=== PATIENT | male | born 1955 | race Caucasian/White ===

== ENCOUNTER 2017-10-11 15:56 | Emergency (ER) | payer OTHER ==
[2017-10-11 16:11] VITALS: BP 185/85; PULSE 72; RESP 20; TEMP 98.3
[2017-10-11] MEDS ORDERED: DIPH,PERTUS(ACELL)TETVAC-LF 0.5 ML VIAL IM ONE (16:15)
[2017-10-11] MEDS ORDERED: HYDROcodone/APAP 5-325MG 1 EACH TAB PO STA (16:28)
--- NOTE | 2017-10-11 16:30 | ED ---
Wound/Laceration HPI - General Chief Complaint: Wound/Laceration Stated Complaint: Cut off tip of finger Time Seen by Provider: 10/11/17 16:12 Source: patient, RN notes reviewed Mode of arrival: ambulatory Limitations: no limitations - History of Present Illness Initial Comments: This a 62-year-old male presents emergency Department chief complaint of right hand fourth digit finger injury. Patient states he caught his finger on a field training agent. Patient states that the nail, portion of his finger is missing. Patient did present initially to PCPs office who referred him to emergency department. He is unsure when his last tetanus was. Patient does state that portion finger that is missing including nail. Patient denies any other injuries. He is [id number]. - Related Data Home Medications Medication Instructions Recorded Confirmed Aspirin [Adult Low Dose Aspirin EC] 81 mg PO DAILY 07/06/16 07/09/16 [place]-3 Fatty Acids/Fish Oil [Fish 1 each PO DAILY 07/06/16 07/09/16 Oil 1,000 mg Softgel] Previous Rx's Medication Instructions Recorded Cephalexin [Keflex] 500 mg PO Q6HR #40 cap 10/11/17 Hydrocodone/Acetaminophen [[place] 1 tab PO Q6HR PRN #20 tab 10/11/17 5-325] Allergies Allergy/AdvReac Type Severity Reaction Status Date / Time No Known Allergies Allergy Verified 10/11/17 16:10 Review of Systems ROS Statement: Those systems with pertinent positive or pertinent negative responses have been documented in the HPI. ROS Other: All systems not noted in ROS Statement are negative. Past Medical History Past Medical History: Prostate Disorder Additional Past Medical History / Comment(s): hemorrhoids, occasional ringing in ears History of Any Multi-Drug Resistant Organisms: None Reported Past Surgical History: Hernia Repair Past Anesthesia/Blood Transfusion Reactions: No Reported Reaction Past Psychological History: No Psychological Hx Reported Smoking Status: Never smoker Past Alcohol Use History: None Reported Past Drug Use History: None Reported - Past Family History Father Family Medical History: Myocardial Infarction ([place]) General Exam Limitations: no limitations General appearance: alert, in no apparent distress Head exam: Present: atraumatic, normocephalic, normal inspection Respiratory exam: Present: normal lung sounds bilaterally. Absent: respiratory distress, wheezes, rales, rhonchi, stridor Cardiovascular Exam: Present: regular rate, normal rhythm, normal heart sounds. Absent: systolic murmur, diastolic murmur, rubs, gallop, clicks Extremities exam: Present: other (Right hand fourth digit there is some active bleeding noted, nail is missing, distal finger amputation through the middle of the distal phalanx) Skin exam: Present: warm Course Vital Signs 10/11/17 16:08 Temperature 98.3 F Pulse Rate 72 Respiratory 20 Rate Blood Pressure 185/85 O2 Sat by Pulse 99 Oximetry - Reevaluation(s) Reevaluation #1: 10/11/17 16:29 I did contact on-call orthopedics [facility] who will talk to Dr. Sylvester at this time and decide for further treatment. Reevaluation #2: 10/11/17 16:57 Neck branch did call back stated that to thoroughly clean the wound, tach down the skin, bulky dressing and follow-up in office tomorrow. Patient significant other did call and scheduled appointment for 3 PM tomorrow. Procedures - Laceration Laceration #1 Consent Obtained: verbal consent Indication: laceration Site: hand (Right hand fourth digit) Size (cm): 3 Description: flap Depth: simple, single layer Anesthetic Used: lidocaine 1%, without epi Anesthesia Technique: nerve block Amount (mls): 8 Pre-repair: wound explored (There is a fingertip amputation skin was tacked down the structures were not intact), irrigated extensively Type of Sutures: nylon Size of Sutures: 4-0 Number of Sutures: 4 Technique: simple, interrupted Patient Tolerated Procedure: well, no complications Additional Comments: Bacitracin applied, bulky dressing Medical Decision Making - Medical Decision Making 62-year-old male presented for prior for right hand fourth digit finger injury. Patient has a fingertip amputation, open fracture. Patient skin was tacked down to stop the bleeding the wound was irrigated with saline. Dressing was applied and will follow-up with orthopedics tomorrow. Patient discharged with antibiotics and pain medication. Patient was given IM Rocephin and adacel Disposition Clinical Impression: Traumatic amputation of fingertip Disposition: HOME SELF-CARE Condition: Stable Instructions: Finger Amputation (ED) Additional Instructions: Follow-up tomorrow with orthopedics as scheduled appointment.Please return to the Emergency Department if symptoms worsen or any other concerns. Prescriptions: Cephalexin [Keflex] 500 mg PO Q6HR #40 cap Hydrocodone/Acetaminophen [[place] 5-325] 1 tab PO Q6HR PRN #20 tab PRN Reason: Pain Referrals: Jaden Benjamin MD [Primary Care Provider] - 1-2 days Jair Lau MD [STAFF PHYSICIAN] - 1-2 days Time of Disposition: 17:02
--- NOTE | 2017-10-11 16:31 | XR ---
4th digit right hand HISTORY: Trauma and pain 3 views of the fourth digit of the right hand There is amputation at the level of the tuft of the fourth digit of the right hand. There is associat ed soft tissue defect, comminuted fragment noted incidentally. No dislocation. IMPRESSION: Findings compatible with patient's history of laceration with partial amputation.
[2017-10-11] MEDS ORDERED: ceFAZolin 1,000 MG VIAL IM STA (16:33)
== END 2017-10-11 17:10 | disposition home or self-care (01) ==
LOC: EC 15:56
DX: S68.114A Complete traumatic metacarpophalangeal amputation of right ring finger, initial encounter (principal); S61.214A Laceration without foreign body of right ring finger without damage to nail, initial encounter; Z79.82 Long term (current) use of aspirin; Z79.899 Other long term (current) drug therapy; Z23 Encounter for immunization; W23.0XXA Caught, crushed, jammed, or pinched between moving objects, initial encounter; Y92.009 Unspecified place in unspecified non-institutional (private) residence as the place of occurrence of the external cause
CPT/HCPCS: 73140; 90715; 99283; 12002; 96372; 90471; J0690

== ENCOUNTER 2017-10-13 09:29 | Day surgery (SDC) | payer OTHER ==
--- NOTE | 2017-10-13 06:57 | HP ---
HISTORY AND PHYSICAL REASON FOR ADMISSION: Surgery scheduled for 10/13/2017. HISTORY OF PRESENT ILLNESS: Irving Mclean is a 62-year-old gentleman who was seen after having sustained a traumatic partial amputation to the right ring finger. I recommended revision of the traumatic partial amputation right ring finger. I discussed the procedure, risks, complications, benefits, and recovery. The patient was agreeable. Consent regarding the procedure was obtained. PAST MEDICAL HISTORY: Noncontributory. PAST SURGICAL HISTORY: Noncontributory. MEDICATIONS ARE: Aspirin. ALLERGIES: None reported. SOCIAL HISTORY: Patient denies current tobacco use. He is retired. He is right-hand dominant. PHYSICAL EVALUATION: Physical examination of his right hand: He has a dressing in place the right upper extremity. He is able to move it at the MP joint. The remaining digits are without injury. RADIOGRAPHS: Radiographs of his right hand revealed a complete amputation distal 3rd of that distal phalanx right ring finger with some comminuted residual fragmentation. IMPRESSION: Right ring finger partial amputation. PLAN: Revision amputation right ring finger. Surgery scheduled for 10/13/17. MMODL / IJN: [id number] /
[~2017-10-13 09:29] MED LIST: ceFAZolin IN SWFI 2 GM/20 ML SYRINGE IVP ONE
[2017-10-13] MEDS ORDERED: ONDANSETRON 4 MG/2 ML VIAL ONE ×2 (10:50→10:52)
[2017-10-13] MEDS ORDERED: LACTATED RINGERS 1,000 ML IV ONE (11:02)
[2017-10-13] MEDS ORDERED: DEXAMETHASONE SOD PHOSPHATE 10 MG/ML 1 ML VIAL IV ONE (11:03)
[2017-10-13] MEDS ORDERED: LIDOCAINE 1% 20 ML VIAL (10MG/ML) FOR IV START INTRADERMA ONE (11:03)
[2017-10-13] MEDS ORDERED: ONDANSETRON 4 MG/2 ML VIAL IVP ONE (11:03)
[2017-10-13] MEDS ORDERED: KETAMINE 10 MG/ML 20 ML VIAL ONE (11:29)
[2017-10-13] MEDS ORDERED: fentaNYL (PF) 50 MCG/ML 2 ML AMP ONE (11:29)
[2017-10-13] MEDS ORDERED: LIDOCAINE 1% INJ 10MG/ML (20 ML MDV) ONE (11:29)
[2017-10-13] MEDS ORDERED: MIDAZOLAM 2 MG/2 ML VIAL ONE (11:29)
[2017-10-13] MEDS ORDERED: PROPOFOL 10 MG/ML 20 ML VIAL IV ONE (11:29)
[2017-10-13] MEDS ORDERED: BUPIVACAINE (PF) 0.25% 30 ML VIAL SQ ONE (11:46)
--- NOTE | 2017-10-13 12:06 | P.OP ---
Date of Procedure: 10/13/17 Preoperative Diagnosis: Partial amputation right ring finger Postoperative Diagnosis: Same Procedure(s) Performed: Revision amputation right ring finger Anesthesia: GWYN, local Surgeon: Daniel Peña Estimated Blood Loss (ml): 5 Pathology: none sent Condition: stable Disposition: PACU Indications for Procedure: 62-year-old patient seen with a partial amputation involving the right ring finger. I recommended revision amputation. I discussed the procedure, risks, complications and recovery. Patient was agreeable and consent regarding the procedure was obtained. Operative Findings: see description of procedure Description of Procedure: The patient was taken to the operative suite. The patient received preoperative IV antibiotics. The patient underwent general anesthetic by the department of anesthesia. A well-padded tourniquet placed proximal right upper extremity. Right upper extremity was prepped and draped in the normal sterile orthopedic fashion. I used a Lizeth drain to create a local tourniquet for the right index finger. The sutures were removed. There was an amputation involving the distal half of the distal digit or just the level of the edge of the fingernail proximally. I removed a very small remnant of the fingernail proximal. At this point there was no way to save that nail and I debrided out the nailbed in matrix. There was some bony fragments are removed with a rongeur. There was some macerated devitalized tissue distally that I sharply excised with a 15 blade. The tendons appeared intact. I took some sharp edges off of the remaining distal portion of the phalanx with a rongeur. I irrigated the wound with normal saline. I hadn't a good palmar flap I now pulled over top of our remainder of the phalanx and sewed it down with 4 simple and opted nylon sutures. I applied a sterile bandage and dressings after releasing our local Lizeth drain tourniquet. I did utilize 10 mL of quarter percent plain Marcaine for a digital block for postoperative pain control. The patient was awakened and then transferred to recovery stable condition.
[2017-10-13 12:13] VITALS: TEMP 98.4
[2017-10-13 13:21] VITALS: BP 160/95; PULSE 65; RESP 16
== END 2017-10-13 13:36 | disposition home or self-care (01) ==
LOC: OR 09:29
PROVIDERS: ATTEND Orthopaedic Surgery
DX: S68.624A Partial traumatic transphalangeal amputation of right ring finger, initial encounter (principal); Z79.82 Long term (current) use of aspirin; Z79.891 Long term (current) use of opiate analgesic
CPT/HCPCS: 26951; J2250; J1100; J2405; J2001; J3010; J2704; J0690

== ENCOUNTER 2024-06-20 09:28 | Day surgery (SDC) | payer MEDICARE, OTHER ==
[~2024-06-20 09:28] MED LIST changes: +HYDROmorphone 0.5 MG/0.5 ML SYRINGE IVP PRN; +LIDOCAINE 1% (10MG/ML) FOR IV START INTRADERMA PRN; -ceFAZolin IN SWFI 2 GM/20 ML SYRINGE IVP ONE; +droPERidol 5 MG/2 ML VIAL IVP ONE
[2024-06-20] MEDS: IV FLUID CONTINUATION 1,000 ML IV ONE (10:02)
[2024-06-20 10:07] VITALS: TEMP 97.2
[2024-06-20] MEDS: LACTATED RINGERS 1,000 ML IV SCH (10:12)
[2024-06-20] MEDS: ONDANSETRON 4 MG/2 ML VIAL IVP ONE (10:12)
[2024-06-20] MEDS: DEXAMETHASONE SOD PHOSPHATE 4 MG/ML 1 ML VIAL IV ONE (10:13)
[2024-06-20] MEDS: FAMOTIDINE 20 MG/2 ML VIAL IV PRN (10:14)
[2024-06-20] MEDS ORDERED: KETAMINE HCL IN 0.9 % NACL 50 MG/5 ML SYRINGE ONE (10:24)
[2024-06-20] MEDS ORDERED: MIDAZOLAM 2 MG/2 ML VIAL ONE (10:24)
[2024-06-20] MEDS ORDERED: fentaNYL (PF) 50 MCG/ML 2 ML AMP ONE (10:24)
[2024-06-20] MEDS ORDERED: PROPOFOL 10 MG/ML 20 ML VIAL IV ONE (10:24)
[2024-06-20] MEDS: LIDOCAINE 1%-EPI 1:100,000 20 ML VIAL SQ ONE ×2 (10:38)
[2024-06-20] MEDS: BACITRACIN ZINC 500 UNIT/GM OINT 28.4 GM TUBE TOPICAL ONE (10:58)
--- NOTE | 2024-06-20 11:05 | P.OP ---
Date of Procedure: 06/20/24 Preoperative Diagnosis: right infra-auricular cyst Postoperative Diagnosis: same Procedure(s) Performed: excision right infra-auricular cyst 3.2 cm with layered closure and facial nerve monitoring Anesthesia: MAC Surgeon: Meek Darby Estimated Blood Loss (ml): 2 Pathology: other (right infra-auricular cyst) Condition: stable Disposition: PACU Indications for Procedure: this 68-year-old white male whose had a cyst right infra-auricular. This enlarged and actually ruptured spontaneously which Made this improved but it is still persistent Operative Findings: right infra-auricular cyst with subcutaneous induration appeared well encapsulated Description of Procedure: patient was brought in the operative suite and placed in a supine position. The patient underwent induction of IV sedation after appropriate monitors were placed by the multi needle machine operator. Patient was then prepped and draped in usual aseptic fashion. 1% lidocaine with 1 [id number] epinephrine was infused subcutaneously and field block fashion. This was left for work for 7 minutes vasoconstrictive effect. An elliptical incision was then fashioned around the lesion in the direction of the relaxed skin tension lines and carried sharply through skin and subcutaneous tissue to include the overlying skin. The lesion was excised grossly entirely down to the SMAS. Facial nerve monitor was utilized to test for facial nerve and its branches were deep to the field and not encountered. The lesion was then excised grossly entirely. Hemostasis was gained with bipolar cautery. The wound was closed in the subcutaneous and deep dermal layers with inverted interrupted 5-0 Vicryl suture skin closed with running locking 5-0 Prolene suture. Bacitracin ointment and sterile dressing were placed. The patient was then allowed to emerge from anesthesia having tolerated procedure was transferred postoperative recovery area in satisfactory condition.
[2024-06-20 11:20] VITALS: BP 124/73; PULSE 78; RESP 16
== END 2024-06-20 11:53 | disposition home or self-care (01) ==
LOC: OR 09:28
PROVIDERS: ATTEND Otolaryngology
DX: Q18.1 Preauricular sinus and cyst (principal); I25.10 Atherosclerotic heart disease of native coronary artery without angina pectoris; E78.5 Hyperlipidemia, unspecified; Z79.82 Long term (current) use of aspirin; Z79.899 Other long term (current) drug therapy
CPT/HCPCS: 88304; 21012; J2250; J1100; J0690; J2405; J3010; J3490; J2704